=== PATIENT | female | born 1975 ===

== ENCOUNTER 2018-02-10 09:56 | Emergency (ER) | payer OTHER ==
[2018-02-10 10:02] VITALS: BP 164/99; PULSE 101; RESP 20; TEMP 99.4; O2SAT 98
[2018-02-10] MEDS ORDERED: Bacitracin 500 Units/gm Oint Foilpak UD ONE (10:19)
--- NOTE | 2018-02-10 10:32 | C.PDOC ---
History Of Present Illness 42 year old female with no medical problems presents to the emergency department with complaints of cough, body aches, chest pain, and back pain, increased with coughing, and sore throat for the last few days. Patient denies fever, headache, abdominal pain, nausea, and vomiting. Time Seen by Provider: 02/10/18 10:03 Chief Complaint (Nursing): Cough, Cold, Congestion History Per: Patient History/Exam Limitations: no limitations Onset/Duration Of Symptoms: Days Current Symptoms Are (Timing): Still Present Location Of Pain: Throat, Diffuse Myalgias, Other (chest, back) Associated Symptoms: Sore Throat, Cough, Myalgias. denies: Fever, Chills, Nausea, Vomiting, Other (headache, abdominal pain) Past Medical History Reviewed: Historical Data, Nursing Documentation, Vital Signs Vital Signs: Last Vital Signs Temp 99.4 F 02/10/18 10:01 Pulse 101 H 02/10/18 10:01 Resp 20 02/10/18 10:01 BP 164/99 H 02/10/18 10:01 Pulse Ox 98 02/10/18 10:01 - Medical History PMH: No Chronic Diseases Surgical History: No Surg Hx Family History: States: No Known Family Hx - Social History Hx Alcohol Use: No Hx Substance Use: No - Immunization History Hx Tetanus Toxoid Vaccination: No Hx Influenza Vaccination: No Hx Pneumococcal Vaccination: No Review Of Systems Except As Marked, All Systems Reviewed And Found Negative. Constitutional: Positive for: Malaise. Negative for: Fever, Chills ENT: Positive for: Throat Pain Respiratory: Positive for: Cough Gastrointestinal: Negative for: Nausea, Vomiting, Abdominal Pain Musculoskeletal: Positive for: Back Pain, Other (chest pain) Neurological: Negative for: Headache Physical Exam - Physical Exam Appears: Non-toxic, No Acute Distress, Other (visibly ill) Skin: Warm, Dry Head: Atraumatic, Normacephalic Eye(s): bilateral: Normal Inspection, Other (watery) Nose: Normal Oral Mucosa: Moist Throat: Erythema (mild) Neck: Normal, Supple Chest: Symmetrical, No Tenderness Cardiovascular: Rhythm Regular, No Murmur Respiratory: Normal Breath Sounds, No Rales, No Rhonchi, No Wheezing Gastrointestinal/Abdominal: Soft, No Tenderness, No Guarding, No Rebound Extremity: Normal ROM Neurological/Psych: Oriented x3, Normal Speech, Normal Cognition ED Course And Treatment O2 Sat by Pulse Oximetry: 98 (RA) Pulse Ox Interpretation: Normal Medical Decision Making Medical Decision Making: Plan: Motrin 600mg PO Tylenol 975mg PO Disposition Counseled Patient/Family Regarding: Diagnosis, Need For Followup, Rx Given - Disposition Referrals: [facility] [Outside] Disposition: HOME/ ROUTINE Disposition Time: 11:07 Condition: STABLE Prescriptions: Benzonatate [Tessalon Perles] 200 mg PO TID #30 sgl Ibuprofen [Motrin] 600 mg PO TID #15 tab Oseltamivir Cap [Tamiflu] 1 cap PO BID #10 cap Instructions: Upper Respiratory Infection (ED) Forms: [employer] (Ukrainian), Work Excuse - POA Present On Arrival: None - Clinical Impression Clinical Impression: Influenza-like illness - Scribe Statement The provider has reviewed the documentation as recorded by the Scribe (Ender Harrell) Provider Attestation: All medical record entries made by the Scribe were at my direction and personally dictated by me. I have reviewed the chart and agree that the record accurately reflects my personal performance of the history, physical exam, medical decision making, and the department course for this patient. I have also personally directed, reviewed, and agree with the discharge instructions and disposition.
== END 2018-02-10 11:14 | disposition home or self-care (01) ==
LOC: C.ER 09:56
DX: J11.1 Influenza due to unidentified influenza virus with other respiratory manifestations (principal)